=== PATIENT | female | born 1955 | race Caucasian/White ===

== ENCOUNTER 2017-10-01 14:53 | Emergency (ER) | payer OTHER ==
[2017-10-01 17:39] VITALS: BP 139/79
[2017-10-01] MEDS ORDERED: HYDROmorphone HCL 2 MG/ML VL IM ONE (17:45)
[2017-10-01] MEDS ORDERED: ONDANSETRON HCL 4 MG/2 ML VIAL IM ONE (17:45)
== END 2017-10-01 18:24 | disposition home or self-care (01) ==
LOC: ER 14:59
DX: S52.571A Other intraarticular fracture of lower end of right radius, initial encounter for closed fracture (principal); W01.198A Fall on same level from slipping, tripping and stumbling with subsequent striking against other object, initial encounter; Y93.01 Activity, walking, marching and hiking; Y99.8 Other external cause status; Y92.9 Unspecified place or not applicable
CPT/HCPCS: 29125; 73110; 96372; 99284; J1170; J2405